=== PATIENT | male | born 1955 | race Caucasian/White ===

== ENCOUNTER 2018-06-23 21:28 | Emergency (ER) | payer SELFPAY ==
[~2018-06-23] VITALS: Ht 182.9 cm; Wt 104.3 kg
[2018-06-23] MEDS: cloNIDine HCL 0.1 MG TABLET PO ONE (22:21)
[2018-06-23] MEDS: oxyCODONE/APAP 5/325 1 TAB TABLET PO ONE (22:22)
[2018-06-23 22:35] LABS: BASO # 0.1 x10^3/uL (0.0-0.2); BASO % 1 % (0-3); EOS % 0 % (0-3); HEMATOCRIT 43.6 % (39.0-53.0); HEMOGLOBIN 15.1 g/dL (13.0-17.5); LYMPH # 1.2 x10^3/uL (1.0-4.8); LYMPH % 15 % (24-48); MEAN CORPUSCULAR HEMOGLOBIN 34 pg (25-35); MEAN CORPUSCULAR HGB CONC 35 g/dL (31-37); MEAN CORPUSCULAR VOLUME 98 fL (79-100); MONO # 0.8 x10^3/uL (0.0-1.1); MONO % 11 % (0-9); NEUT # 5.8 x10^3uL (1.8-7.7); NEUT % 74 % (31-73); PLATELET COUNT 173 x10^3/uL (140-400); RED BLOOD COUNT 4.43 x10^6/uL (4.30-5.70); RED CELL DISTRIBUTION WIDTH 13.9 % (11.5-14.5); WHITE BLOOD COUNT 7.9 x10^3/uL (4.0-11.0)
[2018-06-23 22:48] LABS: ALBUMIN 4.1 g/dL (3.4-5.0); ALBUMIN/GLOBULIN RATIO 0.9 (1.0-1.7); CALCIUM 9.6 mg/dL (8.5-10.1); CREATININE 0.8 mg/dL (0.7-1.3); POTASSIUM 3.7 mmol/L (3.5-5.1); TOTAL BILIRUBIN 1.4 mg/dL (0.2-1.0); TOTAL PROTEIN 8.5 g/dL (6.4-8.2)
[2018-06-23] MEDS: LORazepam 2 MG/ML VIAL IV ONE (23:04)
[2018-06-23] MEDS: IOHEXOL 300 MG/ML 75 ML VIAL. IV ONE (23:11)
--- NOTE | 2018-06-23 23:15 | RAD ---
Three-view right shoulder radiographs 06/23/2018 CLINICAL HISTORY: Right shoulder pain since earlier tonight. Internal and external rotation AP and transscapular digital radiographs of the right shoulder were obtained. Mild degenerative changes are seen involving the right glenohumeral joint and right AC joint. No fracture or dislocation is seen. IMPRESSION: Degenerative changes are seen involving the right shoulder. No acute osseous abnormality is seen. Electronically signed by: Jose Micehl MD (06/23/2018 11:11 PM) [facility]
--- NOTE | 2018-06-23 23:16 | RAD ---
PA and lateral chest radiographs 06/23/2018 CLINICAL HISTORY: Chest pain since earlier tonight. PA and lateral digital radiographs of the chest were obtained. No previous studies are available for comparison. The cardiac silhouette is normal in size. The thoracic aorta is mildly tortuous. No acute pulmonary infiltrate is noted. No pneumothorax or pleural effusion is seen. Degenerative changes are seen involving the thoracic spine. IMPRESSION: No acute abnormality is seen. Electronically signed by: Jose Michel MD (06/23/2018 11:12 PM) [facility]
--- NOTE | 2018-06-23 23:41 | RAD ---
CTA scan of the Chest with Contrast (Pulmonary Embolism protocol) 06/23/2018 Clinical History: Right-sided chest pain with shortness of breath Technique: After the intravenous administration of 75 cc of Omnipaque 300, contiguous, 0.625 mm axial sections were obtained through the chest. 2 mm axial and 3D MIP coronal and sagittal reconstructed images were obtained. One or more of the following individualized dose reduction techniques were utilized for this study: 1. Automated exposure control. 2. Adjustment of the mA and/or kV according to patient size. 3. Use of iterative reconstruction technique. Findings: No filling defect is seen within the major branches of either pulmonary artery. There is no CT evidence of pulmonary embolism. The heart is borderline enlarged. The thoracic aorta is tortuous but tapers normally. Emphysematous changes are seen involving both lungs. Dependent subsegmental atelectasis is seen bilaterally. No area of consolidation is seen. No pneumothorax or pleural effusion is noted. Impression: There is no CT evidence of pulmonary embolism. Electronically signed by: Jose Michel MD (06/23/2018 11:38 PM) [facility]
[2018-06-24] MEDS ORDERED: FOLIC ACID 5 MG/ML SYRINGE for ER IV ONE (00:14)
[2018-06-24] MEDS ORDERED: MVI, ADULT NO.4 WITH VIT K 10 ML VIAL IV ONE (00:14)
[2018-06-24] MEDS ORDERED: PHYTONADIONE 10 MG/ML AMPUL. ONE (00:14)
[2018-06-24] MEDS ORDERED: THIAMINE 200 MG/2 ML VIAL. IV ONE (00:14)
[2018-06-24] MEDS ORDERED: LORA-254 PO (00:14)
[2018-06-24] MEDS: MVI, ADULT NO.4 WITH VIT K 10 ML, FOLIC ACID SYRINGE for ER 1 MG, THIAMINE INJ 100 MG i... IV ONE ×4 (00:25)
[2018-06-24 01:08] VITALS: BP 100/98
--- NOTE | 2018-06-24 03:34 | ED.ADGEN ---
Past History Past Medical History: Hypertension Past Surgical History: No Surgical History Additional Smoking Information: 1 PPD Alcohol Use: Occasionally Drug Use: None Adult General Chief Complaint Chief Complaint Right sided chest pain HPI HPI Patient is a 63-year-old male who presents with right-sided chest pain starting several hours prior to ED arrival. It is located right upper lateral pectoral region radiates to back. It does not reproduce with palpation or movement of right upper extremity. No shortness of breath, fever cough. Patient is tremulous , tachycardic. No fever chills, nausea vomiting or sweats. No leg pain or swelling. Denies history of CAD, HFA and PE. Patient smokes daily and drinks routinely and heavily throughout the week. Last drink was 18 hours ago. [] Review of Systems Review of Systems reView symptoms as per history of present illness. All other systems were reviewed and found to be within normal limits, except as documented in this note. Current Medications Current Medications Current Medications Medications (Trade) Dose Ordered Sig/Rony Start Time Stop Time Status Last Admin Dose Admin Clonidine HCl (Catapres) 0.2 mg 1X ONCE 06/23/18 22:00 06/23/18 22:01 DC 06/23/18 22:21 0.2 MG Folic Acid (FOLIC ACID SYRINGE for ER) 5 mg STK-MED ONCE 06/24/18 00:14 06/24/18 00:15 DC Iohexol (Omnipaque 300 Mg/ml) 75 ml 1X ONCE 06/23/18 23:00 06/23/18 23:03 DC 06/23/18 23:11 75 ML Lorazepam (Ativan) 1 mg 1X ONCE 06/23/18 23:00 06/23/18 23:03 DC 06/23/18 23:04 1 MG Multivitamins/ Minerals (Infuvite Adult) 10 ml STK-MED ONCE 06/24/18 00:14 06/24/18 00:15 DC Multivitamins/ Minerals 10 ml/ Folic Acid 1 mg/ Thiamine HCl 100 mg/Lactated Ringer's 1,011.2 ml @ 1,011.2 mls/hr 1X ONCE 06/24/18 00:15 06/24/18 01:09 DC 06/24/18 00:25 1,011.2 MLS/HR Oxycodone/ Acetaminophen (Percocet 5/325) 1 tab 1X ONCE 06/23/18 22:00 06/23/18 22:01 DC 06/23/18 22:22 1 TAB Phytonadione (Vitamin K) 10 mg STK-MED ONCE 06/24/18 00:14 06/24/18 00:15 DC Thiamine HCl (Thiamine Vial) 200 mg STK-MED ONCE 06/24/18 00:14 06/24/18 00:15 DC Allergies Allergies Allergies Coded Allergies Type Severity Reaction Last Updated Verified No Known Drug Allergies 09/26/15 No Physical Exam Physical Exam Constitutional: Disheveled, coarse resting tremor. [] HENT: Normocephalic, atraumatic, bilateral external ears normal, oropharynx moist, no oral exudates, nose normal. [] Eyes: PERRLA, EOMI, conjunctiva normal, no discharge. [] Neck: Normal range of motion, no tenderness, supple, no stridor. [] Cardiovascular: Tachycardic[] Lungs & Thorax: Bilateral breath sounds clear to auscultation [] Abdomen: Bowel sounds normal, soft, no tenderness. [] Skin: Warm, dry, no erythema, no rash. [] s. [] Extremities: Right shoulder, no deformity swelling, minimal pain, catching on range of motion. [] Neurologic: Alert and oriented X 3, normal motor function, normal sensory function, no focal deficits noted. [] Psychologic: Affect normal, judgement normal, mood normal. [] Current Patient Data Vital Signs Vital Signs Date Time Temp Pulse Resp B/P (MAP) Pulse Ox O2 Delivery O2 Flow Rate FiO2 06/24/18 01:08 73 100/98 (99) 93 Room Air 06/23/18 22:22 20 Lab Results Laboratory Tests Test 06/23/18 22:17 White Blood Count 7.9 x10^3/uL (4.0-11.0) Red Blood Count 4.43 x10^6/uL (4.30-5.70) Hemoglobin 15.1 g/dL (13.0-17.5) Hematocrit 43.6 % (39.0-53.0) Mean Corpuscular Volume 98 fL (79-100) Mean Corpuscular Hemoglobin 34 pg (25-35) Mean Corpuscular Hemoglobin Concent 35 g/dL (31-37) Red Cell Distribution Width 13.9 % (11.5-14.5) Platelet Count 173 x10^3/uL (140-400) Neutrophils (%) (Auto) 74 % (31-73) H Lymphocytes (%) (Auto) 15 % (24-48) L Monocytes (%) (Auto) 11 % (0-9) H Eosinophils (%) (Auto) 0 % (0-3) Basophils (%) (Auto) 1 % (0-3) Neutrophils # (Auto) 5.8 x10^3uL (1.8-7.7) Lymphocytes # (Auto) 1.2 x10^3/uL (1.0-4.8) Monocytes # (Auto) 0.8 x10^3/uL (0.0-1.1) Eosinophils # (Auto) 0.0 x10^3/uL (0.0-0.7) Basophils # (Auto) 0.1 x10^3/uL (0.0-0.2) D-Dimer (Zoe) 1.16 mg/L (0.00-0.50) H Sodium Level 133 mmol/L (136-145) L Potassium Level 3.7 mmol/L (3.5-5.1) Chloride Level 92 mmol/L (98-107) L Carbon Dioxide Level 21 mmol/L (21-32) Anion Gap 20 (6-14) H Blood Urea Nitrogen 7 mg/dL (8-26) L Creatinine 0.8 mg/dL (0.7-1.3) Estimated GFR (Cockcroft-Gault) 98.0 BUN/Creatinine Ratio 9 (6-20) Glucose Level 99 mg/dL (70-99) Calcium Level 9.6 mg/dL (8.5-10.1) Magnesium Level 1.5 mg/dL (1.8-2.4) L Total Bilirubin 1.4 mg/dL (0.2-1.0) H Aspartate Amino Transferase (AST) 52 U/L (15-37) H Alanine Aminotransferase (ALT) 56 U/L (16-63) Alkaline Phosphatase 77 U/L (46-116) Creatine Kinase 246 U/L (39-308) Troponin I Quantitative < 0.017 ng/mL (0-0.055) Total Protein 8.5 g/dL (6.4-8.2) H Albumin 4.1 g/dL (3.4-5.0) Albumin/Globulin Ratio 0.9 (1.0-1.7) L Ethyl Alcohol Level < 10 mg/dL (0-10) EKG EKG [EKG: reviewed] Radiology/Procedures Radiology/Procedures [] Course & Med Decision Making Course & Med Decision Making Pertinent Labs and Imaging studies reviewed. (See chart for details) Non[Specific right-sided chest wall pain and symptoms of acute alcohol withdrawal. Ativan and banana bag given. Hospital admission strongly recommended. Patient declines preferring to follow-up with local primary care physician. He verbalizes standing that he is risk of progression of symptoms, withdrawal seizures, DT's and , but prefers to be tx as an outpt..] Final Impression Final Impression [1. chest pain 2. acute alcohol withdrawl] Dragon Disclaimer Dragon Disclaimer This electronic medical record was generated, in whole or in part, using a voice recognition dictation system. TOMEKA VELIZ DO Jun 24, 2018 03:34
--- NOTE | 2018-06-24 09:58 | EKG ---
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
== END 2018-06-24 01:09 | disposition home or self-care (01) ==
LOC: ER 21:28
DX: R07.89 Other chest pain (principal); M25.511 Pain in right shoulder; F10.239 Alcohol dependence with withdrawal, unspecified; I10 Essential (primary) hypertension; F17.210 Nicotine dependence, cigarettes, uncomplicated; Y90.0 Blood alcohol level of less than 20 mg/100 ml
CPT/HCPCS: 36415; 71046; 71275; 73030; 80053; 82550; 83735; 84484; 85025; 85379; 93005; 96365; 96375; 99285; G0480; J2060; J7120; Q9967